=== PATIENT | male | born 1995 | race Caucasian/White ===

== ENCOUNTER → 2022-11-28 | Outpatient (CLI) | payer BC, OTHER ==
[2022-11-28 10:45] VITALS: BP 138/106
--- NOTE | 2022-11-28 11:56 | Cardiology Stress Test Report ---
Stress Test Report Date of Procedure/Referring: Date of Procedure: Nov 28, 2022 PCP No,Local Physician Admitting Physician Admitting Physician: Attending Physician: Cassius Owen MD Baseline Heart Rate: 71 Baseline Blood Pressure: Blood Pressure Systolic: 138 Blood Pressure Diastolic: 106 Baseline EKG: Baseline EKG: Ventricular bigeminy Summary/Conclusion: Summary: In summary, the patient started exercising with a baseline heart rate, blood pressure and EKG mentioned above Patient was able to exercise for a total of 10.30 minutes on Aniceto protocol, METs 12.1 Maximum heart rate 174 Maximum blood pressure 174/102 Stress EKG, Minimal nondiagnostic changes Recovery EKG , Return to baseline Conclusion: Excellent exercise tolerance for 10 minutes and 30 seconds on standard Aniceto protocol, 12.1 METS achieving 89% of maximal expected heart rate Appropriate heart rate response to exercise with hypertensive response to exercise with peak blood pressure 174/102 return to baseline during recovery frequent PVCs and ventricular bigeminy noted at rest, improved at peak stress level and returned in recovery minimal nondiagnostic EKG changes with exercise return to baseline during recovery CASSIUS OWEN MD Nov 28, 2022 11:55
== END ==
LOC: CANPRECLI → CARD 10:22
PROVIDERS: ATTEND Internal Medicine Cardiovascular Disease
DX: I10 Essential (primary) hypertension (principal); I25.10 Atherosclerotic heart disease of native coronary artery without angina pectoris; R00.2 Palpitations
CPT/HCPCS: 93017

== ENCOUNTER → 2022-12-03 | Outpatient (CLI) | payer BC, OTHER | LOC: CARD 09:36 | PROVIDERS: ATTEND Internal Medicine Cardiovascular Disease | DX: Z53.9 Procedure and treatment not carried out, unspecified reason (principal) ==